=== PATIENT | female | born 1985 | race Caucasian/White ===

== ENCOUNTER 2020-09-27 12:42 | Inpatient (IN) | payer OTHER ==
[~2020-09-27] VITALS: Ht 168.9 cm; Wt 82.5 kg
[2020-09-27] MEDS ORDERED: ACETAMINOPHEN 500 MG TABLET ONE (13:22)
[2020-09-27] MEDS ORDERED: IBUPROFEN 600 MG TABLET ONE (13:22)
[2020-09-27] MEDS ORDERED: ONDANSETRON 2MG/ML, 2ML ONE (13:22)
[2020-09-27] MEDS ORDERED: ACETAMINOPHEN 500 MG TABLET PO ONE (13:30)
[2020-09-27] MEDS ORDERED: ONDANSETRON 2MG/ML, 2ML IVPush ONE (13:30)
[2020-09-27] MEDS ORDERED: SODIUM CHLORIDE FLUSH 10ML SYR IVF ONE (13:30)
[2020-09-27] MEDS ORDERED: SODIUM CHLORIDE 0.9% 1,000ML IVBOLUS ONE ×2 (13:30→16:30)
[2020-09-27] MEDS ORDERED: IBUPROFEN 600 MG TABLET PO ONE (13:30)
[2020-09-27 13:39] LABS: MICROSCOPIC INDICATED
--- NOTE | 2020-09-27 13:39 | NUR ---
Pt reports UTI sx including foul odor of urine and increased frequency starting 2 weeks ago, was not seen by a provider. Pt reports increasing n/v over the past 2 days. R side upper quadrant pain and flank pain. Pt is breathing in kussmals pattern. Mother at bedside. Pt and mother educated about not using blankets while pt is fighting fever. Disscussed POC with pt, she is agreeable without questions. All needs met at this time, call light in reach.
[2020-09-27 13:44] LABS: BASOPHILS % (AUTO) 0 % (0-1); EOSINOPHILS % (AUTO) 0 % (1-7); LYMPHOCYTES % (AUTO) 7 % (22-44); MEAN CORPUSCULAR HEMOGLOBIN 30.6 pg (27.0-34.8); MEAN CORPUSCULAR HGB CONC 34.3 g/dL (32.4-35.8); MEAN PLATELET VOLUME 8.6 fL (7.4-10.4); MONOCYTES % (AUTO) 7 % (2-9); NEUTROPHILS % (AUTO) 86 % (42-75); PLATELET COUNT 232 x10^3/uL (130-400); RED CELL DISTRIBUTION WIDTH 12.6 % (9.6-15.2)
[2020-09-27 13:55] LABS: ALANINE AMINOTRANSFERASE 43 U/L (12-78); ALBUMIN 3.6 g/dL (3.4-5.0); ANION GAP 10 mmol/L (5-15); CALCIUM 8.9 mg/dL (8.5-10.1); CHLORIDE 100 mmol/L (98-107); CREATININE 1.07 mg/dL (0.55-1.02)
[2020-09-27 13:59] LABS: ALKALINE PHOSPHATASE 51 U/L (45-117); BILIRUBIN,TOTAL 1.4 mg/dL (0.2-1.0); TOTAL PROTEIN 8.2 g/dL (6.4-8.2)
[2020-09-27] MEDS ORDERED: OMNIPAQUE 350 MG/ML, 100ML BOTTLE ONE (14:15)
[2020-09-27] MEDS ORDERED: POTASSIUM CHLORIDE 20 MEQ PACKET ONE (15:18)
[2020-09-27] MEDS ORDERED: POTASSIUM CHLORIDE 20 MEQ TAB.ER.PRT ONE (15:20)
[2020-09-27] MEDS ORDERED: POTASSIUM CHLORIDE 10% 20 MEQ/15 ML UDC PO ONE (15:30)
[2020-09-27] MEDS ORDERED: POTASSIUM CHLORIDE 20 MEQ TAB.ER.PRT PO SCH (15:30)
[2020-09-27] MEDS ORDERED: CEFTRIAXONE 1,000 MG in DEXTROSE 5% 50 ML IVPB ONE (15:30)
[2020-09-27] MEDS ORDERED: ENALAPRILAT 1.25 MG/ML, 2ML IVPush PRN (16:00)
[2020-09-27] MEDS ORDERED: POLYETHYLENE GLYCOL 17 GM PACKET PO PRN (16:00)
[2020-09-27] MEDS ORDERED: DOCUSATE 100 MG CAPSULE PO PRN (16:00)
[2020-09-27] MEDS ORDERED: LABETALOL 5MG/ML, 20ML IVPush PRN (16:00)
[2020-09-27] MEDS ORDERED: BISACODYL 10 MG SUPP PR PRN (16:00)
[2020-09-27] MEDS ORDERED: KETOROLAC 30 MG/1 ML IV PRN (16:00)
[2020-09-27] MEDS ORDERED: ONDANSETRON ODT 4 MG PO PRN (16:00)
--- NOTE | 2020-09-27 16:02 | NUR ---
[facility] at bedside, then pt up to bathroom with steady gait.
[2020-09-27] MEDS ORDERED: SODIUM CHLORIDE 0.9% 1,000 ML IV ONE ×2 (16:30)
[2020-09-27 16:44] VITALS: BP 101/67
[2020-09-27] MEDS: NS + 20MEQ KCL 1,000 ML IV SCH (17:53)
[2020-09-27] MEDS: ENOXAPARIN 40 MG/0.4 ML SQ SCH (17:54)
[2020-09-27] MEDS: ACETAMINOPHEN 325 MG TABLET PO PRN (18:07)
[2020-09-27 19:57] VITALS: BP 110/72
[2020-09-28 00:19] VITALS: BP 108/71
[2020-09-28] MEDS: NS + 20MEQ KCL 1,000 ML IV SCH ×3 (01:13→18:01)
[2020-09-28] MEDS: ACETAMINOPHEN 325 MG TABLET PO PRN ×4 (01:17→18:46)
[2020-09-28 05:17] LABS: BASOPHILS % (AUTO) 0 % (0-1); EOSINOPHILS % (AUTO) 0 % (1-7); LYMPHOCYTES % (AUTO) 6 % (22-44); MONOCYTES % (AUTO) 7 % (2-9); NEUTROPHILS % (AUTO) 87 % (42-75); PLATELET COUNT 167 x10^3/uL (130-400); RED BLOOD COUNT 3.43 x10^6/uL (3.82-5.3); RED CELL DISTRIBUTION WIDTH 12.5 % (9.6-15.2)
[2020-09-28 05:21] LABS: ANION GAP 8 mmol/L (5-15); CALCIUM 8.1 mg/dL (8.5-10.1); CHLORIDE 111 mmol/L (98-107)
[2020-09-28 05:23] LABS: CREATININE 0.77 mg/dL (0.55-1.02)
[2020-09-28] MEDS: ONDANSETRON 2MG/ML, 2ML IVPush PRN ×3 (05:44→18:46)
[2020-09-28] MEDS: HYDROcodone/APAP 5/325 TABLET PO PRN ×3 (05:44→18:01)
[2020-09-28 06:49] VITALS: BP 100/67
[2020-09-28] MEDS: SERTRALINE 50MG TABLET PO SCH (08:56)
[2020-09-28] MEDS ORDERED: CEFTRIAXONE 1,000 MG in DEXTROSE 5% 50 ML IVPB ONE (10:30)
[2020-09-28 14:30] VITALS: BP 99/62
[2020-09-28] MEDS ORDERED: CEFTRIAXONE 1,000 MG in DEXTROSE 5% 50 ML IVPB SCH (15:00)
[2020-09-28] MEDS ORDERED: PHENAZOPYRIDINE 100 MG TABLET PO PRN (15:00)
[2020-09-28] MEDS: CEFTRIAXONE 2,000 MG in DEXTROSE 5% 50 ML IVPB SCH (18:02)
[2020-09-28] MEDS: ENOXAPARIN 40 MG/0.4 ML SQ SCH (18:02)
[2020-09-28 18:13] VITALS: BP 113/75
[2020-09-28] MEDS ORDERED: KETOROLAC 30 MG/1 ML IVPush ONE (19:30)
[2020-09-28 23:13] LABS: MICROSCOPIC INDICATED
[2020-09-29 01:17] VITALS: BP 102/70
[2020-09-29] MEDS: NS + 20MEQ KCL 1,000 ML IV SCH ×3 (01:18→20:15)
[2020-09-29 05:34] LABS: BASOPHILS % (AUTO) 0 % (0-1); EOSINOPHILS % (AUTO) 1 % (1-7); LYMPHOCYTES % (AUTO) 13 % (22-44); MEAN CORPUSCULAR HEMOGLOBIN 30.7 pg (27.0-34.8); MEAN CORPUSCULAR HGB CONC 33.8 g/dL (32.4-35.8); MEAN PLATELET VOLUME 8.8 fL (7.4-10.4); MONOCYTES % (AUTO) 10 % (2-9); NEUTROPHILS % (AUTO) 76 % (42-75); PLATELET COUNT 200 x10^3/uL (130-400); RED BLOOD COUNT 3.29 x10^6/uL (3.82-5.3); RED CELL DISTRIBUTION WIDTH 12.8 % (9.6-15.2)
[2020-09-29 05:46] LABS: CHLORIDE 109 mmol/L (98-107)
[2020-09-29 06:04] LABS: ALANINE AMINOTRANSFERASE 27 U/L (12-78); ALBUMIN 2.5 g/dL (3.4-5.0); ALKALINE PHOSPHATASE 56 U/L (45-117); ANION GAP 8 mmol/L (5-15); BILIRUBIN,TOTAL 0.5 mg/dL (0.2-1.0); CALCIUM 8.2 mg/dL (8.5-10.1); CREATININE 0.83 mg/dL (0.55-1.02); TOTAL PROTEIN 6.6 g/dL (6.4-8.2)
[2020-09-29 07:09] VITALS: BP 115/79
[2020-09-29] MEDS: ACETAMINOPHEN 325 MG TABLET PO PRN ×2 (07:32→17:36)
[2020-09-29] MEDS: SERTRALINE 50MG TABLET PO SCH (07:32)
[2020-09-29 13:57] VITALS: BP 120/79
[2020-09-29] MEDS: HYDROcodone/APAP 5/325 TABLET PO PRN (17:36)
[2020-09-29] MEDS: ENOXAPARIN 40 MG/0.4 ML SQ SCH (17:37)
[2020-09-29] MEDS: CEFTRIAXONE 2,000 MG in DEXTROSE 5% 50 ML IVPB SCH (17:37)
[2020-09-29 19:08] VITALS: BP 106/72
[2020-09-30 00:23] VITALS: BP 113/77
[2020-09-30] MEDS: ACETAMINOPHEN 325 MG TABLET PO PRN ×2 (04:20→09:21)
[2020-09-30] MEDS: NS + 20MEQ KCL 1,000 ML IV SCH ×2 (04:31→12:00)
[2020-09-30 05:26] LABS: BASOPHILS % (AUTO) 0 % (0-1); EOSINOPHILS % (AUTO) 1 % (1-7); LYMPHOCYTES % (AUTO) 17 % (22-44); MEAN CORPUSCULAR HEMOGLOBIN 30.9 pg (27.0-34.8); MEAN CORPUSCULAR HGB CONC 34.4 g/dL (32.4-35.8); MEAN PLATELET VOLUME 7.9 fL (7.4-10.4); MONOCYTES % (AUTO) 11 % (2-9); NEUTROPHILS % (AUTO) 71 % (42-75); PLATELET COUNT 248 x10^3/uL (130-400); RED BLOOD COUNT 3.24 x10^6/uL (3.82-5.3); RED CELL DISTRIBUTION WIDTH 12.9 % (9.6-15.2)
[2020-09-30 05:33] LABS: ALBUMIN 2.4 g/dL (3.4-5.0); ANION GAP 8 mmol/L (5-15); CALCIUM 8.2 mg/dL (8.5-10.1); CHLORIDE 109 mmol/L (98-107)
[2020-09-30 05:39] LABS: ALANINE AMINOTRANSFERASE 21 U/L (12-78); ALKALINE PHOSPHATASE 56 U/L (45-117); BILIRUBIN,TOTAL 0.4 mg/dL (0.2-1.0); CREATININE 0.56 mg/dL (0.55-1.02); TOTAL PROTEIN 6.3 g/dL (6.4-8.2)
[2020-09-30 06:55] VITALS: BP 111/77
[2020-09-30] MEDS ORDERED: CEFD300C37 PO (09:06)
[2020-09-30] MEDS: SERTRALINE 50MG TABLET PO SCH (09:21)
== END 2020-09-30 12:15 | disposition home or self-care (01) | DRG 872 ==
LOC: ED 13:18 → EDIP 15:07 → 3N 16:40 → DCLOUNGE 09-30 12:07
PROVIDERS: ADMIT Internal Medicine; ATTEND Family Medicine
DX: A41.9 Sepsis, unspecified organism (principal); E87.1 Hypo-osmolality and hyponatremia; N13.6 Pyonephrosis; D64.9 Anemia, unspecified; E87.6 Hypokalemia; F32.9 Major depressive disorder, single episode, unspecified; I10 Essential (primary) hypertension; Z87.440 Personal history of urinary (tract) infections; Z79.899 Other long term (current) drug therapy
CPT/HCPCS: 36415; 71045; 74177; 80048; 80053; 81001; 83605; 83690; 83735; 84145; 84703; 85025; 87040; 87086; 96361; 96374; G0378; J0696; J1650; J1885; J2405; J3480; Q9967; J7030